=== PATIENT | female | born 1950 | race African-American/Black ===

== ENCOUNTER 2017-04-01 16:31 | Observation (INO) ==
--- NOTE | 2017-04-01 16:47 | EKG Report ---
Stationary ECG Study [facility] Test Date: 04/01/2017 4:42:30 PM Pat Name: JADE TERRELL Department: Room: Gender: F Clinical Professor: Ignacio Gonzalez : 1950 Requested by: Drew Lowe Order Number: [id number] Reading MD: NAVI RAMIREZ Intervals [place] Rate: 84 P: 74 MS: 152 QRS: 73 QRSD: 85 T: 65 QT: 355 QTc: 396 Interpretive Statements SINUS RHYTHM Electronically Signed On 04-04-17 21:07:52 CDT by NAVI RAMIREZ [email or web address]
[2017-04-01] MEDS ORDERED: ENOXAPARIN 100 MG/ML SYRINGE SUBCUT STA (17:08)
[2017-04-01] MEDS ORDERED: NITROGLYCERIN SL 0.4 MG TABLET SL PRN (17:08)
--- NOTE | 2017-04-01 17:09 | XRay Report ---
2 view chest. Indication: Chest pain. Comparison: September 09, 2016. The heart is normal in size. The pulmonary vasculature is normal. The lung claudio are clear. No pneumothorax or pleural effusion. Osseous structures are unremarkable. Impression: No acute abnormality. PROCEDURE INTERPRETED AT [facility] DEPARTMENT OF RADIOLOGY Final Report Signed by: Dr. Kaylin Ramos
[2017-04-01] MEDS ORDERED: ENOXAPARIN 100 MG/ML SYRINGE SUBCUT ONE (17:15)
[2017-04-01] MEDS ORDERED: ALUM/MAG/SIMETH/LIDO VISC 1:1 30 ML BOTTLE PO ONE (17:17)
[2017-04-01 17:20] LABS: Basophils % 0.8 % (0.0-0.8); Eosinophils % 0.5 % (0.00-10.9); Hemoglobin 14.1 GM/DL (12.0-16.0); Immature Granulocytes % 0.5 %; Immature Granulocytes Absolute 0.02 #; Lymphocytes # 1.8 10*3/uL (1.4-4.0); Lymphocytes % 47.8 % (21.3-54.2); Mean Corpuscular HGB Conc 37.4 GM/DL (32-36); Mean Corpuscular Hemoglobin 34 PG (27-34); Mean Corpuscular Volume 89.5 FL (87-102); Mean Platelet Volume 10.9 FL (9.6-12.0); Monocytes # 0.3 10*3/uL (0.11-0.8); Monocytes % 7.1 % (1.7-12.7); Neutrophils # 1.7 10*3/uL (1.4-7.4); Neutrophils % 43.3 % (38.7-73.9); Platelet Count 260 T/CUMM (130-400); Red Blood Count 4.21 MC/CUMM (3.8-5.5); White Blood Count 3.8 T/CUMM (4-12)
[2017-04-01 17:21] LABS: Hematocrit 37.7 VOL% (35.7-47.0)
--- NOTE | 2017-04-01 17:35 | Emergency Department Note ---
Danae Cedeno Brittany, am scribing for, and in the presence of, Luis Alberto Franklin MD 17:13. Rigoberto Cedeno Phillip K, MD, personally performed the services described in this documentation, ascribed by Cecelia Fink in my presence, and it is both accurate and complete 735 . Arrival - Arrival ED Nursing Triage Note: c/o dull pain in center of chest onset about 1430 this afternoon. pt was sitting at a computer at work when it started. +sweating Mode of Arrival: Ambulatory Limitations: No Limitations Source: Patient - History of Present Illness Onset (ago): hour(s) (1430 today) Consistency: constant Severity: moderate Quality: dull Date of Last Menstrual Period: hyst <Luis Alberto Franklin - Last Filed: 04/01/17 18:04> <Triston Ramirez - Last Filed: 04/01/17 19:25> - Arrival Chief Complaint: Chest Pain Stated Complaint: chest pains - History of Present Illness HPI Narrative: This is a 66 y/o black female,who presents to the ED with c/o CP which started at 1430 today. She states she was rest when the chest pain started. She describes the chest pain as a dull type of pain. She localizes the chest pain to the center of the chest. She denies any radiation of the pain. She denies a cough, fever, nausea, vomiting or SOB. She notes mild diaphoresis. She reports movements do not affect the chest pain. Pt has no other complaints/pain in the ED at this time. Pt has a PMhx of HTN and dyslipidemia. Pt denies a surgical Hx. Pt reports a family medicla Hx of heart disease, HTN, and diabetes. Pt denies a social Hx. (Cecelia Fink) This is a 66 y/o black female,who presents to the ED with c/o CP which started at 1430 today. She states she was rest when the chest pain started. She describes the chest pain as a dull type of pain. She localizes the chest pain to the center of the chest. She denies any radiation of the pain. She denies a cough, fever, nausea, vomiting or SOB. She notes mild diaphoresis. She reports movements do not affect the chest pain. Pt has no other complaints/pain in the ED at this time. Pt has a PMhx of HTN and dyslipidemia. Pt denies a surgical Hx. Pt reports a family medicla Hx of heart disease, HTN, and diabetes. Pt denies a social Hx. (Luis Alberto Franklin) Allergies/Adverse Reactions: Allergies Allergy/AdvReac Type Severity Reaction Status Date / Time Sulfa (Sulfonamide Allergy ANAPHYLAXIS Verified 04/20/16 22:25 Antibiotics) Home Medications: Home Medications Medication Instructions Recorded Confirmed Type Atorvastatin [Lipitor] 10 mg PO BEDTIME 04/20/16 04/01/17 History Estradiol [Vivelle-Dot 0.0375 1 each MISC TUFR 04/20/16 04/01/17 History mg/24 hr Patch] Losartan [Cozaar] 50 mg PO DAILY 04/20/16 04/01/17 History Travoprost 0.004% Oph Soln 1 drop BOTH EYES QPM 04/20/16 04/01/17 History [Travatan Z] Cholecalciferol (Vitamin D3) 4,000 unit PO DAILY 09/09/16 04/01/17 History [Vitamin D3] Coenzyme Q10 100 mg PO DAILY 09/09/16 04/01/17 History Furosemide Tab [Lasix Tab] 20 mg PO DAILY PRN 09/09/16 04/01/17 History Linaclotide [Linzess] 145 mcg PO DAILY 09/09/16 04/01/17 History Triamterene/Hctz 37.5-25 Cap 1 capsule PO ONCE PRN 09/09/16 04/01/17 History [Dyazide] Review of System - Review of System 12 point system: reviewed and no additional remarkable complaints except as stated - Review of System Constitutional: Present: diaphoresis (Mild diaphoresis). Absent: fever Respiratory: Absent: cough Cardiovascular: Present: chest pain. Absent: dyspnea on exertion Gastrointestinal: Absent: nausea, vomiting <Luis Alberto Franklin - Last Filed: 04/01/17 18:04> Medical,Surgical,& Family Hx - Medical History Cardio: History of: Hypertension Endocrine: History of: Dyslipidemia - Surgical History Abdominal Surgeries: Patient denies: Cholecystectomy - Family History Family History: Reports;: Family Diabetes, Family Heart Disease, Family Hypertension - Social History Smoking Status: Never smoker Frequency of Alcohol Use: None Type of Drug Use: None <Luis Alberto Franklin - Last Filed: 04/01/17 18:04> Exam - General General appearance: alert, in no apparent distress - Head Head exam: Present: atraumatic - Eye Eye exam: Present: normal appearance, PERRL, EOMI. Absent: conjunctival injection, nystagmus - ENT ENT exam: Present: normal exam, mucous membranes moist - Neck Neck exam: Present: full ROM, trachea midline. Absent: tenderness - Chest Chest inspection: Present: normal inspection, symmetric chest wall rise. Absent : tenderness - Respiratory Respiratory exam: Present: normal lung sounds bilaterally. Absent: respiratory distress - Cardiovascular Cardiovascular exam: Present: regular rate, normal rhythm, normal heart sounds. Absent: murmur, rubs, gallop, clicks, JVD - Abdominal Exam Abdominal exam: Present: soft, normal bowel sounds, other (No tender over gallbladder). Absent: tenderness - Rectal Exam Rectal exam: Present: deferred - Extremities Exam Extremities exam: Present: normal capillary refill, pedal edema (Trace of pedeal edema). Absent: tenderness - Back Exam Back exam: Present: normal inspection, full ROM, rashes. Absent: tenderness, muscle spasm - Neurological Exam Neurological exam: Present: alert, oriented X3, CN II-XII intact. Absent: motor sensory deficit - Psychiatric Psychiatric exam: Present: normal affect, normal mood. Absent: depressed, agitated, anxious, flat affect - Skin Skin exam: Present: warm, dry, intact, normal color. Absent: rash, cyanosis, diaphoresis <Luis Alberto Franklin - Last Filed: 04/01/17 18:04> Vital Signs: Vital Signs Temperature 97.8 F 04/01/17 16:43 Pulse Rate 77 04/01/17 18:00 Respiratory Rate 17 04/01/17 18:39 Blood Pressure 117/69 04/01/17 18:00 O2 Sat by Pulse Oximetry 99 04/01/17 18:42 Course <Luis Alberto Franklin - Last Filed: 04/01/17 18:04> - Consultations Time: 19:22 <Triston Ramirez - Last Filed: 04/01/17 19:25> Course Narrative: Patient was given a nitroglycerin sublingual which initially helped her pain however it came back fairly quickly. She was also given a GI cocktail. Patient 's pain was More GI cocktail than the nitroglycerin. (Luis Alberto Franklin) - Consultations Consultation #1: Dr. Florentin Crenshaw will admit patient (Triston Ramirez) Results - Labs CBC & BMP: 04/01/17 16:46 04/01/17 17:29 Lab Results: I have reviewed the patients labs - EKG EKG results: interpreted by ERMIsabell, WNL, sinus rhythm - Diagnostic Findings Procedure: Chest x-ray: report reviewed by me (No acute abnormality.) <Luis Alberto Franklin - Last Filed: 04/01/17 18:04> - Labs CBC & BMP: 04/01/17 16:46 04/01/17 17:29 <Triston Ramirez - Last Filed: 04/01/17 19:25> Disposition <Luis Alberto Franklin - Last Filed: 04/01/17 18:04> Case discussed with: patient Time of Disposition: 19:25 <Triston Ramirez - Last Filed: 04/01/17 19:25> Clinical Impression: Chest pain, Atypical chest pain Disposition: Still a Patient Condition: Stable
[2017-04-01 17:45] LABS: Alanine Aminotransferase 20 U/L (13-56); Albumin 3.5 G/DL (3.4-5.0); Alkaline Phosphatase 56 U/L (45-117); Aspartate Amino Transferase 19 U/L (0-37); Bilirubin,Total < 0.39 MG/DL (0.2-1.0); Blood Urea Nitrogen 8 MG/DL (7-18); Calcium 9.1 MG/DL (8.5-10.1); Glucose 87 MG/DL (74-106); Osmolality,Calculated 273.5 MOS/KG (273-304); Potassium 4.1 MMOL/L (3.5-5.1); Sodium 139 MMOL/L (136-145); Total Protein 7.4 G/DL (6.4-8.3); Troponin I Only < 0.015 NG/ML (0.00-0.045)
[2017-04-01] MEDS ORDERED: ALUM/MAG/SIMETH/LIDO VISC 1:1 30 ML BOTTLE PO STA (17:56)
[2017-04-01] MEDS ORDERED: [UNRECOGNIZED DRUG - OTHER] TOP SCH (20:50)
[2017-04-01] MEDS ORDERED: TRIAMTERENE/HCTZ 37.5-25 MG CAPSULE PO PRN (20:50)
[2017-04-01] MEDS ORDERED: MORPHINE 2 MG/1 ML SYRINGE IV PRN (20:50)
[2017-04-01] MEDS ORDERED: ACETAMINOPHEN 325 MG TABLET PO PRN (20:50)
[2017-04-01] MEDS ORDERED: ESTRADIOL TOP SCH (20:50)
[2017-04-01] MEDS ORDERED: ONDANSETRON 4 MG/2 ML VIAL IV PRN (20:50)
[2017-04-01] MEDS ORDERED: FUROSEMIDE 20 MG TABLET PO PRN (20:50)
[2017-04-01] MEDS ORDERED: TRAVOPROST 0.004% OPH SOLN 2.5 ML BOTTLE BOTH EYES SCH (21:00)
[2017-04-01] MEDS ORDERED: ATORVASTATIN 10 MG TABLET PO SCH (21:00)
[2017-04-01] MEDS: SODIUM CHLORIDE 0.9% 1,000 ML IV SCH (21:45)
[2017-04-01] MEDS: DOCUSATE SODIUM 100 MG CAPSULE PO SCH (21:45)
--- NOTE | 2017-04-01 22:55 | EKG Report ---
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
[2017-04-02] MEDS: NITROGLYCERIN 2% OINT 1 INCH/GM PACK TOP SCH ×3 (00:24→13:20)
[2017-04-02 01:12] LABS: Basophils # 0.1 10*3/uL (0.0-0.2); Basophils % 0.7 % (0.0-0.8); Eosinophils # 0.1 10*3/uL (0.0-0.87); Eosinophils % 1.4 % (0.00-10.9); Hemoglobin 13.1 GM/DL (12.0-16.0); Immature Granulocytes % 0.2 %; Immature Granulocytes Absolute 0.02 #; Lymphocytes # 3.3 10*3/uL (1.4-4.0); Lymphocytes % 39.8 % (21.3-54.2); Mean Corpuscular HGB Conc 33.6 GM/DL (32-36); Mean Corpuscular Hemoglobin 29 PG (27-34); Mean Corpuscular Volume 85.2 FL (87-102); Mean Platelet Volume 10.9 FL (9.6-12.0); Monocytes # 0.4 10*3/uL (0.11-0.8); Monocytes % 4.8 % (1.7-12.7); Neutrophils # 4.4 10*3/uL (1.4-7.4); Neutrophils % 53.1 % (38.7-73.9); Platelet Count 254 T/CUMM (130-400); Red Blood Count 4.58 MC/CUMM (3.8-5.5); Red Cell Distribution Width 13.5 % (9.3-17.3); White Blood Count 8.4 T/CUMM (4-12)
[2017-04-02 01:58] LABS: Bilirubin,Total 0.4 MG/DL (0.2-1.0); Calcium 9.1 MG/DL (8.5-10.1); Magnesium 2.5 MG/DL (1.8-2.4); Osmolality,Calculated 281.4 MOS/KG (273-304); Risk Ratio 3.51; Total Protein 7.8 G/DL (6.4-8.3); VLDL CHOLESTEROL 24.2 MG/DL
--- NOTE | 2017-04-02 07:40 | EKG Report ---
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
[2017-04-02] MEDS ORDERED: NITROGLYCERIN SL 0.4 MG TABLET SL PRN (08:07)
--- NOTE | 2017-04-02 08:12 | Family Practice History&Phys ---
Assessment and Plan (1) Family history of coronary artery disease Status: Acute Assessment and plan: 04/02/2070: Cardiac isoenzymes and EKG revealed no acute abnormality. She has an extremely strong family history coronary artery disease and cardiology has been consulted. Current Visit: Yes (2) Chest pain Status: Chronic Current Visit: Yes History of Present Illness Chief complaint: Chest pain History of present illness: Ms. Xavier is a 66 year old female Patient 66-year-old black female presented emergency room with complaint of substernal chest pain. Patient states this started when she was at rest while at work she described as a dull substernal pressure. She had no associated nausea, vomiting or diaphoresis. She denies any radiation of her discomfort. Patient certainly justifiably concerned because she has a very strong family history of coronary artery disease in her mother and multiple siblings. Patient came to the emergency room was given sublingual nitroglycerin which seemed to help her as did a GI cocktail. Patient states she is now pain-free. Cardiac isoenzymes were negative and EKG in the emergency room reveal no acute ischemic changes. Patient's son is Garfield Stacey Xavier. Home Medications Medication Instructions Recorded Confirmed Type Atorvastatin [Lipitor] 10 mg PO BEDTIME 04/20/16 04/01/17 History Estradiol [Vivelle-Dot 0.0375 1 each MISC TUFR 04/20/16 04/01/17 History mg/24 hr Patch] Losartan [Cozaar] 50 mg PO DAILY 04/20/16 04/01/17 History Travoprost 0.004% Oph Soln 1 drop BOTH EYES QPM 04/20/16 04/01/17 History [Travatan Z] Cholecalciferol (Vitamin D3) 4,000 unit PO DAILY 09/09/16 04/01/17 History [Vitamin D3] Coenzyme Q10 100 mg PO DAILY 09/09/16 04/01/17 History Furosemide Tab [Lasix Tab] 20 mg PO DAILY PRN 09/09/16 04/01/17 History Linaclotide [Linzess] 145 mcg PO DAILY 09/09/16 04/01/17 History Triamterene/Hctz 37.5-25 Cap 1 capsule PO ONCE PRN 09/09/16 04/01/17 History [Dyazide] Allergies Allergy/AdvReac Type Severity Reaction Status Date / Time Sulfa (Sulfonamide Allergy ANAPHYLAXIS Verified 04/20/16 22:25 Antibiotics) - Constitutional Constitutional: Absent: chills, fatigue, fever(s) - EENT Eyes: Absent: blurry vision, loss of vision Ears: Absent: decreased hearing Nose, mouth and throat: Absent: dysphagia, sinus pressure, sore throat - Cardiovascular Cardiovascular: Present: chest pain at rest. Absent: chest pain with activity, orthopnea, palpitations, PND - Respiratory Respiratory: Absent: cough, dyspnea - Gastrointestinal Gastrointestinal: Present: dyspepsia. Absent: abdominal pain, diarrhea, dysphagia, melena, nausea, vomiting - Genitourinary Genitourinary: Absent: dysuria, hematuria, urinary frequency - Musculoskeletal Musculoskeletal: Absent: arthralgias, back pain - Neurological Neurological: Absent: abnormal gait, confusion, focal weakness, numbness, paresthesias - Psychiatric Psychiatric: Absent: anxiety, confusion - Endocrine Endocrine: Absent: fatigue, polydipsia, polyphagia - Hematologic/Lymphatic Hematologic/Lymphatic: Absent: easy bleeding, easy bruising Medical,Surgical,& Family Hx - Medical History Cardio: History of: Hypertension Endocrine: History of: Dyslipidemia - Surgical History Abdominal Surgeries: Patient denies: Cholecystectomy Reproductive Surgeries: Surgical HX of;: Hysterectomy Additional Surgical History: Bladder suspension - Family History Family History: Reports;: Family Diabetes, Family Heart Disease (Positive family history in mother and multiple siblings), Family Hypertension - Social History Smoking Status: Never smoker Frequency of Alcohol Use: None Type of Drug Use: None Exam - Constitutional Vitals: Period Temp Pulse Resp BP Sys/Campos Pulse Ox Last 24 Hr 96.8 F-97.9 F 74-93 15-18 113-151/69-92 97-99 Exam: General: Objective patient is a well-developed obese black female in no acute distress. She is able to give an excellent history. HEENT: Pupils equal and reactive to light. Patent nares and airway Neck: No meningismus, adenopathy, thyromegaly. There are no auscultated carotid bruits. Cardiovascular: Regular rhythm. No murmurs or gallops Chest: Clear to auscultation without rales rhonchi wheezes. There is no chest wall tenderness. Abdomen: Soft nontender to palpation No masses, rebound, guarding or tenderness. Neuro: Cranial nerves intact and DTRs and strength symmetric in all extremities. Dermatologic: No evidence of abnormal lesions or masses. Musculoskeletal: There is no joint swelling or tenderness or deformity. Extremities: There is no calf swelling or tenderness. Results - Labs CBC & BMP: 04/02/17 00:25 04/02/17 00:25 Lab Results: I have reviewed the past 24 hour labs - EKG EKG results: sinus rhythm, no acute changes
--- NOTE | 2017-04-02 08:24 | XRay Report ---
XR chest 2V Indication: Shortness of breath Comparison: 01 April 2017 Findings: The heart and mediastinum are normal in size and configuration. The pulmonary vascularity is normal in caliber. No lung infiltrates, effusions, pneumothorax or other abnormality is demonstrated. Impression: Normal chest x-ray PROCEDURE INTERPRETED AT [facility] DEPARTMENT OF RADIOLOGY Final Report Signed by: Dr. Burton Mar
[2017-04-02] MEDS ORDERED: ASPIRIN EC 325 MG TABLET PO SCH (09:00)
[2017-04-02] MEDS ORDERED: LOSARTAN 50 MG TABLET PO SCH (09:00)
[2017-04-02] MEDS ORDERED: ENOXAPARIN 100 MG/ML SYRINGE SUBCUT SCH (09:00)
[2017-04-02] MEDS ORDERED: LINACLOTIDE 145 MCG CAPSULE PO SCH (09:00)
[2017-04-02] MEDS ORDERED: CHOLECALCIFEROL 1,000 UNIT TABLET PO SCH (09:00)
[2017-04-02] MEDS ORDERED: PANTOPRAZOLE 40 MG VIAL IV SCH (09:00)
[2017-04-02] MEDS ORDERED: COENZYME Q10 100 MG CAPSULE PO SCH (09:00)
[2017-04-02] MEDS ORDERED: PANTOPRAZOLE 40 MG TABLET PO SCH ×2 (09:00→21:00)
--- NOTE | 2017-04-02 10:52 | Cardiology Consult Note ---
Addendum entered and electronically signed by Kaylin Pineda NP 04/02/17 11:28 : Hemoglobin A1c this admission 7.4. Patient is not currently on diabetic medications. I will add Accu-Cheks before meals and at bedtime and sliding scale insulin. I will defer further management to attending. Original Note: <Kaylin Pineda - Last Filed: 04/02/17 10:36> Assessment and Plan - Time spent with patient Time spent with patient: Greater than 30 minutes (1) Atypical chest pain Status: Acute Assessment and plan: SEE PLAN OF CARE LISTED BELOW. Current Visit: Yes (2) History of gastric ulcer Status: Chronic Assessment and plan: SEE PLAN OF CARE LISTED BELOW. Current Visit: Yes (3) GERD (gastroesophageal reflux disease) Status: Chronic Assessment and plan: SEE PLAN OF CARE LISTED BELOW. Current Visit: Yes (4) Hyperlipidemia Status: Chronic Assessment and plan: SEE PLAN OF CARE LISTED BELOW. Current Visit: Yes (5) Hypertension Status: Chronic Assessment and plan: SEE PLAN OF CARE LISTED BELOW. Current Visit: Yes (6) History of palpitations Status: Chronic Assessment and plan: SEE PLAN OF CARE LISTED BELOW. Current Visit: No (7) Family history of coronary artery disease Status: Chronic Assessment and plan: SEE PLAN OF CARE LISTED BELOW. 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 Xavier is a 66 year old female with known history of coronary disease, who has been followed by Dr. Still in the past. Cardiac risk factors include: Significant family history of premature CAD (mom CABG in her 50s, brother MT/ CABG age 59, sister MT/CABG age 57, sister MT age 62 and brother MT/ age 40 ), hyperlipidemia, hypertension, obesity, sedentary lifestyle and advanced age. Lifetime non-smoker. Past medical history includes: Palpitations. Holter monitor in the past has revealed PVCs, without overt arrhythmias. She tells me that she just recently had a treadmill done in August [address] Still. I was unable to find this report. Per her report, this was low risk study. She reports having several treadmills in the past that were all low risk. She did have heart catheterization performed in 2004. At that time, she was noted to have normal left heart hemodynamics, preserved EF and normal coronary arteries. She was last seen by Dr. Still December 2015. 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 Earlier that day, she confirms malaise and weakness. Generally not feeling well. Her chest pain developed around 2:00 yesterday evening while sitting down at work. She mentions that she was feeling stressed at work. Characterized as a sharp pain. Without radiation. Not associated with shortness of breath, diaphoresis or nausea. Without exertional component. She does have a history of GERD and gastric ulcers, takes Zantac occasionally. She does mention that her discomfort developed approximately 15 minutes after returning from lunch. Her discomfort is not the same as it was when she previously had ulcers. Her pain was ongoing for at least 1 hour. She got up multiple times to walk from her desk to the printer. She reports no worsening in her symptoms. As her chest pain continued , she became concerned given her significant family history of CAD. At that time, she called her to come get her and take her to the emergency department. In the emergency room she was given nitroglycerin. She reports that this really did not help her pain. She was then given GI cocktail which did lessen her pain but did not completely resolve it. Patient was admitted under family medicine's service. Housed the telemetry unit. Cardiology consulted to further evaluate her chest discomfort. Patient seen and examined on the telemetry unit. She is currently without complaints of chest pain, heaviness or tightness. Denies dyspnea. Cardiac biomarkers negative. EKG without ischemic change. Continue to cycle trend. Atypical in nature. Suspect GI or stress related. Received therapeutic dose of Lovenox. Continue PPI, aspirin, lipid-lowering agent, beta blockade and ARB for risk stratification. Per patient report, she just recently had stress test August of this year which was negative. Echocardiogram ordered. I will keep patient n.p.o. and discuss with Dr. Zamarripa regarding the need for further cardiac workup. Further plan and addendum to follow. IMPRESSION AND PLAN: 1. ATYPICAL CHEST PAIN - Atypical in nature. Suspect GI or stress related. Cardiac biomarkers negative. EKG without ischemic change. Continue to cycle trend. Received therapeutic dose of Lovenox. Continue PPI, aspirin, lipid- lowering agent, beta blockade and ARB for risk stratification. Per patient report, she just recently had stress test August of this year which was negative. Will order echocardiogram. I will keep patient n.p.o. and discuss with Dr. Zamarripa regarding the need for further cardiac workup. Further plan and addendum to follow. 2. HYPERLIPIDEMIA - Lipid panel reviewed. LDL 109. I will increase her statin dose to provide further risk stratification given her significant family history. Repeat lipid panel in 4-6 weeks. 3. HYPERTENSION - Well controlled. Continue current plan of care. 4. FAMILY HISTORY OF PREMATURE CAD - Mom CABG in her 50s, brother MT/CABG age 59, sister MT/CABG age 57, sister MT age 62 and brother MT/ age 40. 5. HISTORY OF GASTRIC ULCER - Continue PPI. 6. HISTORY OF GERD - Continue PPI. 7. HISTORY OF PALPITATIONS - Patient has worn Holter monitor in the past and has been noted to have PVCs. She reports that this is overall under well control. I have added beta-blockade to further assist in controlling these. 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 CC: Florentin Crenshaw MD - Home Medications and Allergies Home Medications: Home Medications Medication Instructions Recorded Confirmed Type Atorvastatin [Lipitor] 10 mg PO BEDTIME 04/20/16 04/01/17 History Estradiol [Vivelle-Dot 0.0375 1 each [facility] 04/20/16 04/01/17 History mg/24 hr Patch] Losartan [Cozaar] 50 mg PO DAILY 04/20/16 04/01/17 History Travoprost 0.004% Oph Soln 1 drop BOTH EYES QPM 04/20/16 04/01/17 History [Travatan Z] Cholecalciferol (Vitamin D3) 4,000 unit PO DAILY 09/09/16 04/01/17 History [Vitamin D3] Coenzyme Q10 100 mg PO DAILY 09/09/16 04/01/17 History Furosemide Tab [Lasix Tab] 20 mg PO DAILY PRN 09/09/16 04/01/17 History Linaclotide [Linzess] 145 mcg PO DAILY 09/09/16 04/01/17 History Triamterene/Hctz 37.5-25 Cap 1 capsule PO ONCE PRN 09/09/16 04/01/17 History [Dyazide] Allergies/Adverse Reactions: Allergies Allergy/AdvReac Type Severity Reaction Status Date / Time Sulfa (Sulfonamide Allergy ANAPHYLAXIS Verified 04/20/16 22:25 Antibiotics) - Constitutional Constitutional: Present: as per HPI, fatigue, malaise, weakness. Absent: chills , fever(s), frequent falls, weight gain, weight loss - Cardiovascular Cardiovascular: Present: as per HPI, chest pain at rest. Absent: chest pain with activity, claudication, diaphoresis, dyspnea, dyspnea on exertion, edema, radiating jaw, neck or arm pain, lightheadedness, orthopnea, palpitations, PND - Respiratory Respiratory: Present: as per HPI. Absent: cough, dyspnea, dyspnea on exertion, wheezing, snoring, pain on inspiration, change in phlegm color - Gastrointestinal Gastrointestinal: Present: as per HPI, heartburn. Absent: abdominal pain, change in bowel habits, coffee ground emesis, hematemesis, hematochezia, loose stools, melena, nausea, vomiting - Neurological Neurological: Present: as per HPI. Absent: abnormal gait, abnormal speech, behavioral changes, dizziness, frequent falls, syncope Medical,Surgical,& Family Hx - Medical History Cardio: History of: Hypertension Endocrine: History of: Dyslipidemia Gastrointestinal: History of: GERD, GI Problems (History of gastric ulcer) - Surgical History Cardiac Surgeries: Sugical HX of: Cardiac Catheterization Abdominal Surgeries: Patient denies: Cholecystectomy Reproductive Surgeries: Surgical HX of;: Hysterectomy - Family History Family History: Reports;: Family Diabetes, Family Heart Disease (Positive family history in mother and multiple siblings), Family Hypertension - Social History Smoking Status: Never smoker Frequency of Alcohol Use: None Type of Drug Use: None Marital Status: Lives With:: Spouse Functional capacity: independent ambulation Physical Examination Vital Signs Temp Pulse Resp BP Pulse Ox 97.8 F 93 H 18 126/92 98 04/01/17 16:43 04/01/17 16:43 04/01/17 16:43 04/01/17 16:43 04/01/17 16:43 Exam: General: Appears well with no apparent distress. Pleasant and cooperative. Appears comfortable. HEENT: PERRL, normocephalic, atraumatic. Mucous membranes moist. No jaundice noted. Conjunctiva moist and clear, sclerae anicteric Neck: No JVD/HJR, no thyromegaly or lymphadenopathy noted. No carotid bruit appreciated Cardiac: Regular rate and rhythm. No murmur rub or gallop. Lungs: Clear to auscultation without accessory muscle use to assist the respiratory pattern. Not requiring oxygen. Abdomen: Soft, bowel sounds normoactive. Nontender and nondistended. No abdominal bruit or thrill noted. No masses noted. Extremities: No clubbing, cyanosis noted. No edema noted. Upper extremity pulses 2+. Lower extremity pulses 2+. Capillary refill less than 3 seconds. Skin: No unusual lesions or rashes. No skin breakdown appreciated. Neuro: Awake, alert and oriented 3. Moves all extremities well without hemiparesis or paralysis. No essential tremor is appreciated. Result/EKG - Labs CBC & BMP: 04/02/17 00:25 04/02/17 00:25 Lab Results: I have reviewed the past 24 hour labs Labs: Laboratory Results - last 24 hr 04/01/17 04/01/17 04/01/17 16:46 16:59 16:59 WBC 3.8 L RBC 4.21 Hgb 14.1 Hct 37.7 MCV 89.5 MCH 34 MCHC 37.4 H RDW 12.0 Plt Count 260 MPV 10.9 Neut % (Auto) 43.3 Lymph % (Auto) 47.8 Atkinson % (Auto) 7.1 Eos % (Auto) 0.5 Baso % (Auto) 0.8 Neut # (Auto) 1.7 Lymph # (Auto) 1.8 Atkinson # (Auto) 0.3 Eos # (Auto) 0.0 Baso # (Auto) 0.0 Immature Gran % 0.5 Nucleated RBC % 0.0 Immature Gran # 0.02 Nucleated RBCs # 0.00 Immature Plt Fraction 0.0 Sodium Potassium Chloride Carbon Dioxide Anion Gap BUN Creatinine GFR Calculation BUN/Creatinine Ratio Glucose Calculated Osmolality Calcium Magnesium 2.5 H Total Bilirubin AST ALT Alkaline Phosphatase Total Creatine Kinase CK-MB (CK-2) Troponin I < 0.015 B-Natriuretic Peptide Total Protein Albumin Globulin Albumin/Globulin Ratio Triglycerides Cholesterol LDL Cholesterol VLDL Cholesterol HDL Cholesterol Heart Disease Risk Ratio 04/01/17 04/01/17 04/02/17 17:29 21:29 00:25 WBC RBC Hgb Hct MCV MCH MCHC RDW Plt Count MPV Neut % (Auto) Lymph % (Auto) Atkinson % (Auto) Eos % (Auto) Baso % (Auto) Neut # (Auto) Lymph # (Auto) Atkinson # (Auto) Eos # (Auto) Baso # (Auto) Immature Gran % Nucleated RBC % Immature Gran # Nucleated RBCs # Immature Plt Fraction Sodium 139 Potassium 4.1 Chloride 105 Carbon Dioxide 30 Anion Gap 8.1 BUN 8 Creatinine 1.40 H GFR Calculation 54 BUN/Creatinine Ratio 5.00 L Glucose 87 Calculated Osmolality 273.5 Calcium 9.1 Magnesium Total Bilirubin < 0.39 AST 19 ALT 20 Alkaline Phosphatase 56 Total Creatine Kinase 151 CK-MB (CK-2) < 1.0 Troponin I < 0.015 < 0.015 < 0.015 B-Natriuretic Peptide Total Protein 7.4 Albumin 3.5 Globulin 3.9 H Albumin/Globulin Ratio 0.8 L Triglycerides Cholesterol LDL Cholesterol VLDL Cholesterol HDL Cholesterol Heart Disease Risk Ratio 04/02/17 04/02/17 04/02/17 00:25 00:25 00:25 WBC 8.4 D RBC 4.58 Hgb 13.1 Hct 39.0 MCV 85.2 L MCH 29 MCHC 33.6 RDW 13.5 Plt Count 254 MPV 10.9 Neut % (Auto) 53.1 Lymph % (Auto) 39.8 Atkinson % (Auto) 4.8 Eos % (Auto) 1.4 Baso % (Auto) 0.7 Neut # (Auto) 4.4 Lymph # (Auto) 3.3 Atkinson # (Auto) 0.4 Eos # (Auto) 0.1 Baso # (Auto) 0.1 Immature Gran % 0.2 Nucleated RBC % 0.0 Immature Gran # 0.02 Nucleated RBCs # 0.00 Immature Plt Fraction 0.0 Sodium 140 Potassium 4.0 Chloride 104 Carbon Dioxide 29 Anion Gap 11.0 BUN 15 Creatinine 0.90 GFR Calculation 93 BUN/Creatinine Ratio 16.00 Glucose 126 H Calculated Osmolality 281.4 Calcium 9.1 Magnesium 2.5 H Total Bilirubin 0.40 AST 19 ALT 23 Alkaline Phosphatase 125 H Total Creatine Kinase CK-MB (CK-2) Troponin I B-Natriuretic Peptide 17 Total Protein 7.8 Albumin 4.0 Globulin 3.8 H Albumin/Globulin Ratio 1.0 L Triglycerides 121 Cholesterol 186 LDL Cholesterol 109.0 VLDL Cholesterol 24.2 HDL Cholesterol 53 Heart Disease Risk Ratio 3.51 - EKG EKG results: interpreted by me, sinus rhythm <Layo Zamarripa - Last Filed: 04/02/17 15:00> History of Present Illness - Consult Narrative History of present illness: Ms. Xavier is a 66 year old female CC: Florentin Crenshaw MD Physical Examination Vital Signs Temp Pulse Resp BP Pulse Ox 97.8 F 93 H 18 126/92 98 04/01/17 16:43 04/01/17 16:43 04/01/17 16:43 04/01/17 16:43 04/01/17 16:43 Result/EKG - Labs CBC & BMP: 04/02/17 00:25 04/02/17 00:25 Labs: Laboratory Results - last 24 hr 04/01/17 04/01/17 04/01/17 16:46 16:59 16:59 WBC 3.8 L RBC 4.21 Hgb 14.1 Hct 37.7 MCV 89.5 MCH 34 MCHC 37.4 H RDW 12.0 Plt Count 260 MPV 10.9 Neut % (Auto) 43.3 Lymph % (Auto) 47.8 Atkinson % (Auto) 7.1 Eos % (Auto) 0.5 Baso % (Auto) 0.8 Neut # (Auto) 1.7 Lymph # (Auto) 1.8 Atkinson # (Auto) 0.3 Eos # (Auto) 0.0 Baso # (Auto) 0.0 Immature Gran % 0.5 Nucleated RBC % 0.0 Immature Gran # 0.02 Nucleated RBCs # 0.00 Immature Plt Fraction 0.0 Sodium Potassium Chloride Carbon Dioxide Anion Gap BUN Creatinine GFR Calculation BUN/Creatinine Ratio Glucose POC Glucose Hemoglobin A1c Calculated Osmolality Calcium Magnesium 2.5 H Total Bilirubin AST ALT Alkaline Phosphatase Total Creatine Kinase CK-MB (CK-2) Troponin I < 0.015 B-Natriuretic Peptide Total Protein Albumin Globulin Albumin/Globulin Ratio Triglycerides Cholesterol LDL Cholesterol VLDL Cholesterol HDL Cholesterol Heart Disease Risk Ratio 04/01/17 04/01/17 04/02/17 17:29 21:29 00:25 WBC RBC Hgb Hct MCV MCH MCHC RDW Plt Count MPV Neut % (Auto) Lymph % (Auto) Atkinson % (Auto) Eos % (Auto) Baso % (Auto) Neut # (Auto) Lymph # (Auto) Atkinson # (Auto) Eos # (Auto) Baso # (Auto) Immature Gran % Nucleated RBC % Immature Gran # Nucleated RBCs # Immature Plt Fraction Sodium 139 Potassium 4.1 Chloride 105 Carbon Dioxide 30 Anion Gap 8.1 BUN 8 Creatinine 1.40 H GFR Calculation 54 BUN/Creatinine Ratio 5.00 L Glucose 87 POC Glucose Hemoglobin A1c Calculated Osmolality 273.5 Calcium 9.1 Magnesium Total Bilirubin < 0.39 AST 19 ALT 20 Alkaline Phosphatase 56 Total Creatine Kinase 151 CK-MB (CK-2) < 1.0 Troponin I < 0.015 < 0.015 < 0.015 B-Natriuretic Peptide Total Protein 7.4 Albumin 3.5 Globulin 3.9 H Albumin/Globulin Ratio 0.8 L Triglycerides Cholesterol LDL Cholesterol VLDL Cholesterol HDL Cholesterol Heart Disease Risk Ratio 04/02/17 04/02/17 04/02/17 00:25 00:25 00:25 WBC 8.4 D RBC 4.58 Hgb 13.1 Hct 39.0 MCV 85.2 L MCH 29 MCHC 33.6 RDW 13.5 Plt Count 254 MPV 10.9 Neut % (Auto) 53.1 Lymph % (Auto) 39.8 Atkinson % (Auto) 4.8 Eos % (Auto) 1.4 Baso % (Auto) 0.7 Neut # (Auto) 4.4 Lymph # (Auto) 3.3 Atkinson # (Auto) 0.4 Eos # (Auto) 0.1 Baso # (Auto) 0.1 Immature Gran % 0.2 Nucleated RBC % 0.0 Immature Gran # 0.02 Nucleated RBCs # 0.00 Immature Plt Fraction 0.0 Sodium 140 Potassium 4.0 Chloride 104 Carbon Dioxide 29 Anion Gap 11.0 BUN 15 Creatinine 0.90 GFR Calculation 93 BUN/Creatinine Ratio 16.00 Glucose 126 H POC Glucose Hemoglobin A1c Calculated Osmolality 281.4 Calcium 9.1 Magnesium 2.5 H Total Bilirubin 0.40 AST 19 ALT 23 Alkaline Phosphatase 125 H Total Creatine Kinase CK-MB (CK-2) Troponin I B-Natriuretic Peptide 17 Total Protein 7.8 Albumin 4.0 Globulin 3.8 H Albumin/Globulin Ratio 1.0 L Triglycerides 121 Cholesterol 186 LDL Cholesterol 109.0 VLDL Cholesterol 24.2 HDL Cholesterol 53 Heart Disease Risk Ratio 3.51 04/02/17 04/02/17 12:37 Unknown WBC RBC Hgb Hct MCV MCH MCHC RDW Plt Count MPV Neut % (Auto) Lymph % (Auto) Atkinson % (Auto) Eos % (Auto) Baso % (Auto) Neut # (Auto) Lymph # (Auto) Atkinson # (Auto) Eos # (Auto) Baso # (Auto) Immature Gran % Nucleated RBC % Immature Gran # Nucleated RBCs # Immature Plt Fraction Sodium Potassium Chloride Carbon Dioxide Anion Gap BUN Creatinine GFR Calculation BUN/Creatinine Ratio Glucose POC Glucose 112 H Hemoglobin A1c 7.4 H Calculated Osmolality Calcium Magnesium Total Bilirubin AST ALT Alkaline Phosphatase Total Creatine Kinase CK-MB (CK-2) Troponin I B-Natriuretic Peptide Total Protein Albumin Globulin Albumin/Globulin Ratio Triglycerides Cholesterol LDL Cholesterol VLDL Cholesterol HDL Cholesterol Heart Disease Risk Ratio
[2017-04-02] MEDS ORDERED: ATORVASTATIN 40 MG TABLET PO SCH (10:53)
[2017-04-02] MEDS ORDERED: LOSARTAN 25 MG TABLET PO SCH (10:54)
[2017-04-02] MEDS: SODIUM CHLORIDE 0.9% 1,000 ML IV SCH (13:20)
[2017-04-02] MEDS: INSULIN REGULAR 100 UNIT/ML SUBCUT SCH ×2 (13:47→16:53)
[2017-04-02] MEDS: DOCUSATE SODIUM 100 MG CAPSULE PO SCH (14:00)
[2017-04-02 16:19] VITALS: BP 127/84
--- NOTE | 2017-04-02 16:32 | Discharge Summary ---
Hospital Course - Hospital Course Hospital Course: This 66-year-old black female who is a mother of Dr. Colleen Xavier who presented emergency room with substernal chest pain. Patient was concerned she has an extremely positive family history coronary artery disease. Patient admits to being quite a bit of stress at her work and she also had some issues with dyspepsia. Cardiac isoenzymes and EKG were all normal. She was seen in consultation with cardiology who recommended further outpatient workup. She states she is ready to go home and has not had any further discomfort. Her pain was relieved with a GI cocktail. Patient has no personal history of coronary artery disease but she has multiple risk factors including her family history. She will be discharged home today and follow-up with Dr. Aguilar in the office in 2 weeks. Diagnosis - Discharge Diagnosis (1) Family history of coronary artery disease Status: Chronic (2) Chest pain Status: Chronic Specialty Discharge - Follow Up or Referrals Follow up with: Layo Zamarripa MD [Physician] - 2 Weeks (EKG ) Discharge Plan - Discharge Data Disposition: Disch To Home/Self Care Condition at Discharge: Stable Discharge Diet: advance to your usual diet Activity: resume usual activities as tolerated Hygiene: no restrictions Weight Bearing at Discharge: full weight bearing Driving: no restrictions Contact your physician if you experience:: Shortness of breath - Discharge Medications New Aspirin EC Tab 81 mg PO DAILY tablet Carvedilol [Coreg] 3.125 mg PO BID tablet Nitroglycerin Sl Tab [Nitrostat] 0.4 mg SL Q5M PRN #25 tablet PRN Reason: Chest Pain Pantoprazole Tab [Protonix Tab] 40 mg PO BID #60 tablet Atorvastatin [Lipitor] 40 mg PO BEDTIME tablet Continue Losartan [Cozaar] 50 mg PO DAILY Travoprost 0.004% Oph Soln [Travatan Z] 1 drop BOTH EYES QPM Estradiol [Vivelle-Dot 0.0375 mg/24 hr Patch] 1 each MISC TUFR Furosemide Tab [Lasix Tab] 20 mg PO DAILY PRN PRN Reason: FLUID Coenzyme Q10 100 mg PO DAILY Cholecalciferol (Vitamin D3) [Vitamin D3] 4,000 unit PO DAILY Triamterene/Hctz 37.5-25 Cap [Dyazide] 1 capsule PO ONCE PRN PRN Reason: FLUID Linaclotide [Linzess] 145 mcg PO DAILY Discontinued Atorvastatin [Lipitor] 10 mg PO BEDTIME - Follow Up or Referral Follow Up: Layo Zamarripa MD [Physician] - 2 Weeks (EKG ) Mono Aguilar DO [Physician] - 2 Weeks - Forms/Instructions Exam - Constitutional Vitals: Period Temp Pulse Resp BP Sys/Campos Pulse Ox Last 24 Hr 96.8 F-99.3 F 74-93 15-18 111-151/67-92 96-100 Exam: General: Objective patient is a well-developed obese black female in no acute distress. She is able to give an excellent history. HEENT: Pupils equal and reactive to light. Patent nares and airway Neck: No meningismus, adenopathy, thyromegaly. There are no auscultated carotid bruits. Cardiovascular: Regular rhythm. No murmurs or gallops Chest: Clear to auscultation without rales rhonchi wheezes. There is no chest wall tenderness. Abdomen: Soft nontender to palpation No masses, rebound, guarding or tenderness. Neuro: Cranial nerves intact and DTRs and strength symmetric in all extremities. Dermatologic: No evidence of abnormal lesions or masses. Musculoskeletal: There is no joint swelling or tenderness or deformity. Extremities: There is no calf swelling or tenderness. Discharge Results Procedures and tests throughout hospitalization: Pending Orders 04/03/17 04:00 BMP w/ Mg [Basic Metabolic Panel w/Mg] IN AM CBC [Comp Blood Count Auto Diff] IN AM 04/04/17 04:00 BMP w/ Mg [Basic Metabolic Panel w/Mg] IN AM CBC [Comp Blood Count Auto Diff] IN AM Labs on day of discharge: Labs from last 24 hours 04/02/17 04/02/17 04/02/17 Unknown 15:33 12:37 WBC RBC Hgb Hct MCV MCH MCHC RDW Plt Count MPV Neut % (Auto) Lymph % (Auto) [place] % (Auto) Eos % (Auto) Baso % (Auto) Neut # (Auto) Lymph # (Auto) [place] # (Auto) Eos # (Auto) Baso # (Auto) Immature Gran % Nucleated RBC % Immature Gran # Nucleated RBCs # Immature Plt Fraction Sodium Potassium Chloride Carbon Dioxide Anion Gap BUN Creatinine GFR Calculation BUN/Creatinine Ratio Glucose POC Glucose 175 H 112 H Hemoglobin A1c 7.4 H Calculated Osmolality Calcium Magnesium Total Bilirubin AST ALT Alkaline Phosphatase Total Creatine Kinase CK-MB (CK-2) Troponin I B-Natriuretic Peptide Total Protein Albumin Globulin Albumin/Globulin Ratio Triglycerides Cholesterol LDL Cholesterol VLDL Cholesterol HDL Cholesterol Heart Disease Risk Ratio 04/02/17 04/02/17 04/02/17 00:25 00:25 00:25 WBC 8.4 D RBC 4.58 Hgb 13.1 Hct 39.0 MCV 85.2 L MCH 29 MCHC 33.6 RDW 13.5 Plt Count 254 MPV 10.9 Neut % (Auto) 53.1 Lymph % (Auto) 39.8 [place] % (Auto) 4.8 Eos % (Auto) 1.4 Baso % (Auto) 0.7 Neut # (Auto) 4.4 Lymph # (Auto) 3.3 [place] # (Auto) 0.4 Eos # (Auto) 0.1 Baso # (Auto) 0.1 Immature Gran % 0.2 Nucleated RBC % 0.0 Immature Gran # 0.02 Nucleated RBCs # 0.00 Immature Plt Fraction 0.0 Sodium 140 Potassium 4.0 Chloride 104 Carbon Dioxide 29 Anion Gap 11.0 BUN 15 Creatinine 0.90 GFR Calculation 93 BUN/Creatinine Ratio 16.00 Glucose 126 H POC Glucose Hemoglobin A1c Calculated Osmolality 281.4 Calcium 9.1 Magnesium 2.5 H Total Bilirubin 0.40 AST 19 ALT 23 Alkaline Phosphatase 125 H Total Creatine Kinase CK-MB (CK-2) Troponin I B-Natriuretic Peptide 17 Total Protein 7.8 Albumin 4.0 Globulin 3.8 H Albumin/Globulin Ratio 1.0 L Triglycerides 121 Cholesterol 186 LDL Cholesterol 109.0 VLDL Cholesterol 24.2 HDL Cholesterol 53 Heart Disease Risk Ratio 3.51 04/02/17 04/01/17 04/01/17 00:25 21:29 17:29 WBC RBC Hgb Hct MCV MCH MCHC RDW Plt Count MPV Neut % (Auto) Lymph % (Auto) [place] % (Auto) Eos % (Auto) Baso % (Auto) Neut # (Auto) Lymph # (Auto) [place] # (Auto) Eos # (Auto) Baso # (Auto) Immature Gran % Nucleated RBC % Immature Gran # Nucleated RBCs # Immature Plt Fraction Sodium 139 Potassium 4.1 Chloride 105 Carbon Dioxide 30 Anion Gap 8.1 BUN 8 Creatinine 1.40 H GFR Calculation 54 BUN/Creatinine Ratio 5.00 L Glucose 87 POC Glucose Hemoglobin A1c Calculated Osmolality 273.5 Calcium 9.1 Magnesium Total Bilirubin < 0.39 AST 19 ALT 20 Alkaline Phosphatase 56 Total Creatine Kinase 151 CK-MB (CK-2) < 1.0 Troponin I < 0.015 < 0.015 < 0.015 B-Natriuretic Peptide Total Protein 7.4 Albumin 3.5 Globulin 3.9 H Albumin/Globulin Ratio 0.8 L Triglycerides Cholesterol LDL Cholesterol VLDL Cholesterol HDL Cholesterol Heart Disease Risk Ratio 04/01/17 04/01/17 04/01/17 16:59 16:59 16:46 WBC 3.8 L RBC 4.21 Hgb 14.1 Hct 37.7 MCV 89.5 MCH 34 MCHC 37.4 H RDW 12.0 Plt Count 260 MPV 10.9 Neut % (Auto) 43.3 Lymph % (Auto) 47.8 [place] % (Auto) 7.1 Eos % (Auto) 0.5 Baso % (Auto) 0.8 Neut # (Auto) 1.7 Lymph # (Auto) 1.8 [place] # (Auto) 0.3 Eos # (Auto) 0.0 Baso # (Auto) 0.0 Immature Gran % 0.5 Nucleated RBC % 0.0 Immature Gran # 0.02 Nucleated RBCs # 0.00 Immature Plt Fraction 0.0 Sodium Potassium Chloride Carbon Dioxide Anion Gap BUN Creatinine GFR Calculation BUN/Creatinine Ratio Glucose POC Glucose Hemoglobin A1c Calculated Osmolality Calcium Magnesium 2.5 H Total Bilirubin AST ALT Alkaline Phosphatase Total Creatine Kinase CK-MB (CK-2) Troponin I < 0.015 B-Natriuretic Peptide Total Protein Albumin Globulin Albumin/Globulin Ratio Triglycerides Cholesterol LDL Cholesterol VLDL Cholesterol HDL Cholesterol Heart Disease Risk Ratio DS: Provider Date of admission: 04/01/17 19:26 Primary care physician: . No PCP Attending physician on admission: Florentin Crenshaw MD Consults: 04/01/17 20:50 Consult to Case Mgmt/Social Srvs [CONS] Routine Reason for Case Mgmt/Social Srvs: Discharge Planning Consult to Physician [CONS] Routine Comment: chest pain Consulting Provider: Cardiology - [facility] When should Consulting Provider be notified: In am Consult to Specialist Group: Cardiology Person Notified: dana Date Notified: 04/02/17 Time Notified: 07:45 Discharging clinician: Florentin Crenshaw MD Expected date of discharge: 04/02/17
--- NOTE | 2017-04-02 17:51 | ECHO Report ---
[facility] Exam Date: 04/02/2017 13:59 Referring Physician: Technologist: sofi Nguyen ARDMS, RVT Age: 66 Ht (in): 65 Wt (lb): 227 Gender: F Exam Location: [facility] Echo Indications: Essential (primary) hypertension, Chest pain, unspecified, GERD, Hx:Palpitation, Hyperlipidemia, Familt Hx:CAD BP: 111 / 76 HR: 83 Rhythm: Sinus Technical Quality: IMPRESSIONS Normal chamber sizes Normal LV systolic function with ejection fraction estimated be 65% without segmental wall motion normality 1+ mitral, and 2+ tricuspid regurgitation with RVSP 34 mmHg plus RAP MEASUREMENTS (Male / Female) Normal Values 2D ECHO LV Diastolic Diameter PLAX 3.6 cm 4.2 - 5.9 / 3.9 - 5.3 cm LV Systolic Diameter PLAX 2.1 cm LV Fractional Shortening PLAX 41.9 % IVS Diastolic Thickness 1.1 cm 0.6 - 1.0 / 0.6 - 0.9 cm LVPW Diastolic Thickness 1.3 cm 0.6 - 1.0 / 0.6 - 0.9 cm RV Internal Dim ED PLAX 2.6 cm Aortic Root Diameter 2.8 cm LA Systolic Diameter LX 3.3 cm 3.0 - 4.0 / 2.7 - 3.8 cm DOPPLER TR Peak Velocity 293.0 cm/s TR Peak Gradient 34.3 mmHg FINDINGS Left Ventricle Normal left ventricular cavity size. Mild left ventricular hypertrophy.left ventricular ejection fraction is estimated at 60%. Right Ventricle The right ventricle is normal in size and function. Right Atrium The right atrium is normal in size. Left Atrium The left atrium is normal in size. Mitral Valve Morphologically normal mitral valve. Mild-moderate mitral valve regurgitation. Aortic Valve Morphologically normal aortic valve without significant sclerosis or stenosis. There is no aortic regurgitation. Tricuspid Valve Morphologically normal tricuspid valve. Mild tricuspid valve regurgitation. Tricuspid regurgitation velocities suggest a PAP of 44 mmHg. Pulmonic Valve Pulmonic valve not well visualized. Mild pulmonary valve regurgitation. Pericardium Normal pericardium without effusion. Aorta Normal ascending aorta dimension. Layo Zamarripa (Electronically Signed) Final Date: 02 April 2017 17:51
[2017-04-02] MEDS ORDERED: CARVEDILOL 3.125 MG TABLET PO SCH (21:00)
[2017-04-02] MEDS ORDERED: ENOXAPARIN 40 MG/0.4 ML SYRINGE SUBCUT SCH (21:00)
[2017-04-03] MEDS ORDERED: ASPIRIN EC 81 MG TABLET PO SCH (09:00)
[2017-04-03] MEDS ORDERED: ENOXAPARIN 40 MG/0.4 ML SYRINGE SUBCUT SCH (09:00)
== END 2017-04-02 17:14 | disposition home or self-care (01) ==
LOC: N.ED 16:31 → N.EDINP 19:26 → INTOOBSV 19:26 → N.TELES 20:16
PROVIDERS: ADMIT Family Medicine; ATTEND Family Medicine